=== PATIENT | male | born 2000 | race African-American/Black ===

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

== ENCOUNTER 2022-08-06 19:53 | Emergency (ER) | payer MEDICAID ==
[~2022-08-06] VITALS: Ht 185.4 cm; Wt 65.8 kg
[2022-08-06 20:01] VITALS: BP_SYST 119
[2022-08-06] MEDS ORDERED: ACETAMINOPHEN 325 MG TABLET PO ONE (20:30)
[2022-08-06] MEDS ORDERED: ONDANSETRON 4 MG ODT TAB PO ONE (20:30)
[2022-08-06] MEDS ORDERED: ONDA-8 TL (22:27)
[2022-08-06] MEDS ORDERED: FLUT16SP16 NS (22:27)
[2022-08-06] MEDS ORDERED: IBUP-1971 PO (22:27)
[2022-08-06] MEDS ORDERED: AUG875 PO (22:27)
[2022-08-06 22:35] VITALS: BP_SYST 119
== END 2022-08-06 22:35 | disposition home or self-care (01) ==
LOC: SED 19:53
DX: S06.0X0A Concussion without loss of consciousness, initial encounter (principal); J32.9 Chronic sinusitis, unspecified; Z79.899 Other long term (current) drug therapy; W22.03XA Walked into furniture, initial encounter; Y93.89 Activity, other specified; Y92.89 Other specified places as the place of occurrence of the external cause; Y99.8 Other external cause status
CPT/HCPCS: 99284; 70450; 70486; 76376; Q0162